=== PATIENT | male | born 1950 | race Caucasian/White ===

== ENCOUNTER 2021-02-02 08:50 | Outpatient (CLI) | payer MEDICARE, SELFPAY | END 2021-02-02 08:51 | disposition home or self-care (01) | LOC: ANHCOVIDVC 08:50 | DX: Z23 Encounter for immunization (principal) | CPT/HCPCS: 0001A; 91300 ==

== ENCOUNTER 2021-02-23 08:54 | Outpatient (CLI) | payer MEDICARE, SELFPAY | END 2021-02-23 08:55 | LOC: ANHCOVIDVC 08:55 | DX: Z23 Encounter for immunization (principal) | CPT/HCPCS: 0002A; 91300 ==

== ENCOUNTER 2022-09-24 07:42 | Outpatient (CLI) | payer MEDICARE, SELFPAY ==
--- NOTE | ~2022-09-24 | MR_ITS ---
EXAMINATION: MR lumbar spine wo con DATE: 09/24/2022 08:27 INDICATION: Left-sided sciatica. Low back pain. TECHNIQUE: Magnetic resonance imaging (MRI) of the lumbar spine was performed without intravenous con trast. Sequences included sagittal T2-weighted FSE, sagittal T2-weighted FS FSE, sagittal T1-weighted FSE, and axial T2-weighted FSE. COMPARISON: None FINDINGS: There is 8 degrees levocurvature of lumbar spine. There is 3 mm retrolisthesis of L2 on L3, L3 on L4, and L4 on L5. There is mild chronic anterior wedging of T12 and L1 vertebral bodies. There is mildly decreased disc height at T11-T12, moderately decreased disc height at T12-L1, severely dec reased disc height at L1-L2, moderately decreased disc height at L2-L3, and severely decreased disc h eight from L3-L4 through L5-S1 with endplate remodeling. Epidural lipomatosis is noted. The distal sp inal cord signal intensity is normal. The conus medullaris is at L1-L2. There are cysts in the kidney s measuring up to 2.6 cm on the left. The following disc levels are specifically discussed: L1-L2: The disc is bulging with superimposed central extrusion. There is severe bilateral facet joint osteoarthritis. There is mild right and moderate left neural foraminal stenosis. There is mild centr al canal stenosis. L2-L3: The disc is bulging and has an annular fissure. There is severe bilateral facet joint osteoart hritis. There is moderate right and mild left neural foraminal stenosis. There is mild central canal stenosis. L3-L4: The disc is bulging with superimposed large right subarticular zone extrusion with 14 mm infer ior extension and mass effect on the right L4 nerve root. There is severe right and mild left facet j oint osteoarthritis. There is moderate bilateral neural foraminal stenosis. There is mild central can al stenosis at the midline. There is severe stenosis of right lateral recess. L4-L5: The disc is bulging with superimposed right central zone extrusion. There is severe right and moderate left facet joint osteoarthritis. There is moderate right and mild left neural foraminal sten osis. There is mild central canal stenosis. There is moderate stenosis of right lateral recess. L5-S1: The disc is bulging and has an annular fissure. There is severe bilateral facet joint osteoart hritis. There is moderate bilateral neural foraminal stenosis. There is mild central canal stenosis. IMPRESSION: 1. Severe lumbar spondylosis. Reviewed, dictated and finalized at location E. [facility] [employer]
== END 2022-09-24 07:43 ==
LOC: MICIMG 07:44
PROVIDERS: PCP Family Medicine; Visit Provider Physician Assistant
DX: M54.32 Sciatica, left side (principal); M47.896 Other spondylosis, lumbar region
CPT/HCPCS: 72148